=== PATIENT | male | born 1960 | race Caucasian/White ===

== ENCOUNTER 2020-12-20 11:21 | Outpatient (CLI) | payer BC ==
[~2020-12-20] VITALS: Ht 180.3 cm; Wt 125.0 kg
[2020-12-20 11:20] VITALS: BP 130/75
[2020-12-20] MEDS ORDERED: EPINEPHrine INJECTION 1 MG/ML AMP IM PRN (11:45)
[2020-12-20] MEDS ORDERED: diphenhydrAMINE 50 MG/ML INJ (BENADRYL) IV PRN (11:45)
[2020-12-20] MEDS ORDERED: CASIRIVIMAB/IMDEVIMAB 1,200 MG in NS (IVPB) 250 ML IV ONE (12:00)
[2020-12-20] MEDS ORDERED: ONDANSETRON 4 MG/2 ML (SDV) Z0FRAN IV PRN (12:00)
[2020-12-20] MEDS ORDERED: ACETAMINOPHEN 500 MG TAB (TYLENOL) PO PRN (12:00)
[2020-12-20 12:55] VITALS: BP 127/63
[2020-12-20 14:00] VITALS: BP 121/73
== END 2020-12-20 13:47 ==
LOC: INFUSION 11:21
PROVIDERS: ATTEND Family Medicine
DX: U07.1 COVID-19 (principal)